=== PATIENT | male | born 1970 | race Caucasian/White ===

== ENCOUNTER 2018-09-21 08:12 | Emergency (ER) | payer OTHER ==
[~2018-09-21] VITALS: Ht 177.8 cm; Wt 88.5 kg
[2018-09-21 08:24] VITALS: Ht 177.8 cm; Wt 88.5 kg
[2018-09-21 09:45] VITALS: BP 94/59
== END 2018-09-21 09:45 | disposition home or self-care (01) ==
LOC: ED 08:12
DX: S39.012A Strain of muscle, fascia and tendon of lower back, initial encounter (principal); X50.0XXA Overexertion from strenuous movement or load, initial encounter; Y93.89 Activity, other specified; Y92.89 Other specified places as the place of occurrence of the external cause; Y99.8 Other external cause status
CPT/HCPCS: J1885